=== PATIENT | male | born 2000 | race Caucasian/White ===

== ENCOUNTER 2022-05-13 14:30 | Emergency (ER) | payer OTHER ==
[~2022-05-13] VITALS: Ht 182.9 cm; Wt 98.0 kg
[2022-05-13 14:43] VITALS: BP 143/96
[2022-05-13] MEDS ORDERED: ONDANSETRON 4 MG ODT PO ONE (15:10)
[2022-05-13] MEDS ORDERED: ONDA-188 SL (15:15)
--- NOTE | 2022-05-13 15:38 | NUR ---
Note [email or web address] in EDM - 05/13/22 at 1543 by MELVINA 21 y/o M BIB mother c/o nausea, vomiting, diarrhea x 1 week. Patient reports vomiting and diarrhea x 3 episodes each, nonbloody. Patient denies sick household members. Denies fever, chills, headache, abdominal pain, urinary symptoms. Denies medications prior to arrival. PMH/Sx/Meds: Denies NKDA
--- NOTE | 2022-05-13 15:38 | NUR ---
21 y/o M BIB mother c/o nausea, vomiting, diarrhea x 1 week. Patient reports vomiting and diarrhea x 3 episodes each, nonbloody. Patient denies sick household members. Denies fever, chills, headache, abdominal pain, urinary symptoms. Denies medications prior to arrival. PMH/Sx/Meds: Denies Allergies: NESSA
--- NOTE | 2022-05-13 15:40 | NUR ---
Patient discharged with v/s stable. Written and verbal after care instructions given and explained for Acute Gastroenteritis. Patient alert, oriented and verbalized understanding of instructions. Ambulatory with steady gait. All questions addressed prior to discharge. ID band removed. Patient advised to follow up with PMD. Rx of Zofran ODT given. Patient educated on indication of medication including possible reaction and side effects. Opportunity to ask questions provided and answered.
== END 2022-05-13 15:40 | disposition home or self-care (01) ==
LOC: MED 14:30
DX: K52.9 Noninfective gastroenteritis and colitis, unspecified (principal); Z88.0 Allergy status to penicillin; Z79.899 Other long term (current) drug therapy
CPT/HCPCS: 99283; Q0162

== ENCOUNTER 2022-07-08 12:46 | Emergency (ER) | payer OTHER ==
[~2022-07-08] VITALS: Ht 185.4 cm; Wt 99.8 kg
[~2022-07-08 12:46] MED LIST: ONDA-188 SL
[2022-07-08 12:54] VITALS: BP 151/62
--- NOTE | 2022-07-08 12:58 | NUR ---
PATIENT TOOK TWO DOSES OF UNPRESCRIBED AMOXICILLIN YESTERDAY, NOW C/O GENERALIZED RASHED AND ITCHINESS. PMH: DENIES
[2022-07-08] MEDS ORDERED: diphenhydrAMINE 50 MG CAP PO ONE (14:05)
[2022-07-08] MEDS ORDERED: DEXAMETHASONE 10 MG/ML VIAL IM ONE (14:05)
[2022-07-08] MEDS ORDERED: FAMOTIDINE 20 MG TAB PO ONE (14:05)
[2022-07-08] MEDS ORDERED: PRED20TA5 PO (14:14)
[2022-07-08] MEDS ORDERED: DIPH25TA53 PO (14:14)
[2022-07-08] MEDS ORDERED: FAMO-92 PO (14:14)
[2022-07-08 14:28] VITALS: BP 109/80
--- NOTE | 2022-07-08 14:28 | NUR ---
Patient discharged with v/s stable. Written and verbal after care instructions given and explained. Patient alert, oriented and verbalized understanding of instructions. Ambulatory with steady gait. All questions addressed prior to discharge. ID band removed. Patient advised to follow up with PMD. Rx of PEPCID, PREDNISONE given. Patient educated on indication of medication including possible reaction and side effects. Opportunity to ask questions provided and answered.
== END 2022-07-08 14:28 | disposition home or self-care (01) ==
LOC: MED 12:46
DX: L50.9 Urticaria, unspecified (principal); T78.49XA Other allergy, initial encounter; Z88.0 Allergy status to penicillin; Z79.899 Other long term (current) drug therapy; X58.XXXA Exposure to other specified factors, initial encounter
CPT/HCPCS: 96372; 99283; J1100; Q0163